=== PATIENT | female | born 1990 | race Caucasian/White ===

== ENCOUNTER 2019-06-16 14:15 | Emergency (ER) | payer MEDICAID, SELFPAY ==
[~2019-06-16] VITALS: Ht 172.7 cm; Wt 94.7 kg
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
--- NOTE | 2019-06-16 16:35 | NUR ---
PT BECAME INCREASINGLY AGITATED. WAS REQUESTING VAGINAL SWAB FOR DAUGHTER AFTER BEING EDUCATED ON REASON FOR NOT COMPLETING ONE. ELOPED W/ DAUGHTER AND STATES THAT SHE WAS GOING TO SEEK CARE FROM [facility]. CHANTAL HERNANDEZ AND CPS INFORMED OF PTS ELOPMENET AND THAT THEY MAY BE SEEKING CARE AT [facility].
== END 2019-06-16 16:56 | disposition left against medical advice (07) ==
LOC: ED 14:59
DX: T74.21XA Adult sexual abuse, confirmed, initial encounter (principal); Y07.9 Unspecified perpetrator of maltreatment and neglect
CPT/HCPCS: 99281